=== PATIENT | male | born 1985 ===

== ENCOUNTER 2021-06-13 18:59 | Emergency (ER) | payer MEDICAID, OTHER ==
--- NOTE | 2021-06-13 19:56 | ER ---
DATE SEEN: 06/13/2021 CHIEF COMPLAINT: Dog bite. HISTORY OF PRESENT ILLNESS: A 36-year-old male with a dog bite to the left upper lip that happened at home while playing with a friend's dog. REVIEW OF SYSTEMS: No fever or chills. ALLERGIES: Reviewed. PHYSICAL EXAMINATION: VITAL SIGNS: Blood pressure is 152/95, pulse 101, temp is Normal, oxygen is 97. HEENT: Head is atraumatic. The face reveals a 5 to 6 cm size laceration of the left upper lip crossing the vermilion and the full thickness of the lip. IMPRESSION: Dog bite. PLAN: I referred him to [facility] for repair. /[id number] ANUP/HARPER NUNEZ
== END 2021-06-13 19:35 ==
LOC: FB.ED 18:59
DX: S01.551A Open bite of lip, initial encounter (principal); W54.0XXA Bitten by dog, initial encounter
CPT/HCPCS: 99284